=== PATIENT | female | born 1980 | race Caucasian/White ===

== ENCOUNTER 2019-09-11 10:29 | Outpatient (RCR) | payer BC, SELFPAY ==
--- NOTE | ~2019-09-11 | US_ITS ---
EXAMINATION: US OB BPP wo non-stress DATE: 09/08/2019 14:33 INDICATION: Advanced maternal age, third trimester TECHNIQUE: Real-time pelvic ultrasound was performed. The interpreting radiologist was not present fo r the study. COMPARISON: None. FINDINGS: There is a single living fetus in vertex presentation. The placenta is fundal/left. heart rate is 122 beats per minute (bpm). Biophysical profile performed by the technologist: breathing (30 sec sustained breathing in 30 minutes): 2 out of 2 movement (3 gross body movements in 30 minutes): 2 out of 2 tone (one episode of olsrnpv-tfiegioqt-xalhayy limb movement): 2 out of 2 Amniotic fluid pocket (2 cm): 2 out of 2 Total score: 8 out of 8 IMPRESSION: 1. Single living fetus in vertex presentation. 2. Biophysical profile 8 out of 8. Reviewed, dictated and finalized at location A. [facility]
[2019-09-11 11:12] VITALS: BP 107/72; PULSE 87
== END 2019-09-17 08:19 | disposition home or self-care (01) ==
LOC: ANHOBOP 10:29
PROVIDERS: Visit Provider Obstetrics & Gynecology
DX: O09.513 Supervision of elderly primigravida, third trimester (principal); O48.0 Post-term pregnancy; Z3A.40 40 weeks gestation of pregnancy
CPT/HCPCS: 59025; 76819

== ENCOUNTER 2019-09-15 06:15 | Inpatient (IN) | payer BC, SELFPAY ==
[2019-09-15] VITALS (15 sets, daily range): BP systolic 124–154; BP diastolic 75–90; PULSE 76–98; RESP 16; TEMP 36.6–37.3; O2SAT 99; BMI 24.0
[2019-09-15 06:59] LABS: Basophils Absolute Auto 0.1 K/mm3 (0.0-0.1); Basophils Percent Auto 0.6 % (0.2-1.2); Eosinophils Absolute Auto 0.1 K/mm3 (0-0.3); Eosinophils Percent Auto 0.8 % (0-4.4); Hematocrit 34.9 % (37.0-47.0); Hemoglobin 11.4 g/dL (12.0-15.0); Immature Granulocyte Absolute 0.05 K/mm3 (0.00-0.031); Immature Granulocyte Percent A 0.6 % (0-0.5); Lymphocytes Absolute Auto 1.07 K/mm3 (0.9-3.2); Lymphocytes Percent Auto 12.3 % (18.3-44.2); Mean Corpuscular HGB Conc 32.7 g/dl (32-36); Mean Corpuscular Hemoglobin 29.3 pg (26-34); Mean Corpuscular Volume 89.7 fl (80-100); Mean Platelet Volume 9.4 fl (7.4-10.4); Monocytes Absolute Auto 0.6 K/mm3 (0.1-0.6); Monocytes Percent Auto 6.6 % (2.6-8.5); Neutrophils Absolute Auto 6.9 K/mm3 (1.3-6.7); Neutrophils Percent Auto 79.1 % (45.5-73.1); Platelet Count Result 135 k/mm3 (150-375); Red Blood Count 3.89 M/mm3 (4.2-5.4); Red Cell Distribution Width 13.8 % (11.5-14.5); White Blood Count 8.7 K/mm3 (4.5-10.0)
[2019-09-15] MEDS: LACTATED RINGERS 1,000 ML 125 ML IV CONT (07:01)
--- NOTE | 2019-09-15 07:33 | LDADM ---
This patient, Emi Carter, was admitted to Labor/Delivery/Recovery 106 on 09/15/19 at 06:15. Plans for labor, pain management and were discussed with patient. Patient/family oriented to hospital policies and general routines including ID bracelet, bed and alarms, visiting hours, pain management, procedures, bathroom and other care routines, personal items, smoking policy, room service/diet and guest tray routines, infant security routines, and visiting hours. Patient/Family are encouraged to report perceived risks to care and to ask questions if they do not understand what they are told or what they should do. See OBIX for further documentation.
--- NOTE | 2019-09-15 09:54 | P.PCNOB_ITS ---
OB - Delivery Note Procedure Delivery date: 09/15/19 Route of delivery: Laceration description: Perineal - 1st Degree Delivery repair: chromic Specimen: No Estimated blood loss (mL): 200 Anesthesia type: Local Disposition: floor Narrative: Patient prepped and draped in usual sterile manner for this procedure. Maternal expulsive efforts readily delivered vertex with the rest of the baby delivered without difficulty. Placenta delivered spontaneously. Cervix survive vagina and vulva were inspected. No lacerations or tears. Other than a midline vaginal wall laceration which was readily approximated using 2 0 chromic running interlocking manner after injecting with 1% lidocaine. At this point the procedure was considered terminated, the uterus was well contracted and there was minimal bleeding. [place] Baby Weeks of gestation at delivery: 40 Infant gender: Male Weight (pounds): 8 Weight (ounces): 4 presentation: vertex Placenta delivery description: Spontaneous cord vessel description: 3 Vessels score one minute: 8 score five minutes: 9
--- NOTE | 2019-09-15 09:54 | WPDHPUPDATE1 ---
History and Physical Update Update Date/Time: 09/15/19 09:54 History and Physical has been reviewed, including an updated exam of the patient. There are NO changes in the patient's condition. Risks, benefits, and alternatives have been discussed and questions answered. Patient agrees to proceed with procedure.
--- NOTE | 2019-09-15 09:54 | WPDOBADMIT ---
Obstetrics - Admit Note Admission Note: record reviewed. No pertinent additions to the history and/or any subsequent changes in the physical findings that are not consistent with the expected course of the were found. Additions to the history and/or subsequent changes in the physical findings follow. None.
[2019-09-15] MEDS: IBUPROFEN 600 MG TABLET PO ×3 (10:34→23:02)
[2019-09-15] MEDS: WITCH HAZEL 40 PADS 1 PAD TOPICAL (10:34)
[2019-09-15] MEDS: BENZOCAINE 20% AER SPR (*SP) 56 GM CAN 1 SPRAY TOPICAL (10:34)
[2019-09-16] MEDS: IBUPROFEN 600 MG TABLET PO ×3 (05:34→22:15)
[2019-09-16 06:05] LABS: Hematocrit 30.2 % (37.0-47.0)
[2019-09-16] MEDS: BENZOCAINE 20% AER SPR (*SP) 56 GM CAN 1 SPRAY TOPICAL (07:15)
[2019-09-16] MEDS: WITCH HAZEL 40 PADS 1 PAD TOPICAL (07:15)
[2019-09-16] MEDS: MULTIVIT/MIN/PREN/FOL AC/IRON TABLET 1 TAB PO (07:15)
[2019-09-16] MEDS: DOCUSATE SODIUM 100 MG CAPSULE PO ×2 (07:15→15:19)
[2019-09-16] MEDS: DIBUCAINE 1% OINTMENT 30 GM TUBE 1 APPLIC TOPICAL (07:16)
[2019-09-16 07:30] VITALS: BP 121/82; PULSE 73; RESP 16; TEMP 37.1; O2SAT 98
[2019-09-16 10:54] LABS: Rapid Plasma Reagin Non-Reactive (NonReactive)
--- NOTE | 2019-09-16 13:13 | PM.OBDSVD ---
OB - DS: Summary OB Procedures : None OB Procedures Intrapartum: Spontaneous Vag Delivery OB Procedures: : None Time Spent with Patient Time attestation: Total time spent providing and/or coordinating discharge services: DS: Data Data Completed and Pending Labs on day of discharge: Labs from last 24 hours 09/16/19 09/15/19 04:44 06:52 Hgb 10.0 L Hct 30.2 L RPR Non-reactive Discharge Plan Discharge Discharging Clinician: Braulio Gant Patient Disposition: Home, Self-Care Activity: as tolerated Diet: as tolerated Patient Instructions: Antibiotic Form Stand Alone Forms: General Discharge Information Follow-up/Referrals: Braulio Gant MD [Physician] - 3 Weeks Discharge Medications: New ibuprofen 600 mg Tablet 600 mg PO Q6H PRN (Reason: Cramping) Qty: 30 RF: 0 Continued ferrous sulfate 324 mg (65 mg iron) Tablet,Delayed Release (Dr/Ec) 324 mg PO DAILY RF: 0 PNV cmb#95-ferrous fumarate-FA [] 28 mg iron- 800 mcg Tablet 1 tablet PO DAILY RF: 0 Date of admission: 09/15/19 06:15 Primary Care Provider: UNKNOWN,DOCTOR Admitting Provider: Braulio Gant Attending physician on admission: Braulio Gant
--- NOTE | 2019-09-16 14:20 | PC.NURSE ---
1420 Breast feeding note; mother called nurse to room to assist and evaluate breast feeding as nurse had requested her do to. Report was that infant was probably latching shallow for feedings. Nurse instructed mother how to assess that baby was latching with deep latch, and mother agreed that probably baby had been latching shallow. Mother was shown cross cradle position alignment, with use of nose to nipple latch-on technique, holding breast in ?U? hold and asymmetrical latch on discussing rational for each. Baby awake, eager; several attempts required; cross-cradle position used. Baby latched after several attempts, apparent deep latch; maintained latch and demonstrated vigorous, rhythmic sucking. Mother stated she could feel the difference with a deeper latch. Reviewed frequency and duration of feedings, q2-3 hours and on demand, and nipple care. Mother reported she was able to get infant latched to second side, using cross-cradle position, and latch was good. Mother encouraged to call for nurse assistance at any feeding, especially if having difficulty getting infant latched correctly. She agreed and voiced understanding of all information shared. would draw back during feeding to shallow latch, demonstrated how to adjust latch more deeply while feeding. Suggested to give gentle resistance and not allow to draw back during feeding to assist maintaining deep latch.
--- NOTE | 2019-09-16 17:18 | PC.NURSE ---
Patient viewed the discharge video Mother & Baby Care, The First Two Weeks . Patient was given the opportunity and encouraged to ask questions. Patient verbalized understanding of information shared and has been given the mother/baby guide for home reference.
[2019-09-16 18:53] VITALS: BP 127/78; PULSE 68; RESP 18; TEMP 36.7
[2019-09-17] MEDS: BENZOCAINE 20% AER SPR (*SP) 56 GM CAN 1 SPRAY TOPICAL (07:35)
[2019-09-17] MEDS: WITCH HAZEL 40 PADS 1 PAD TOPICAL (07:35)
[2019-09-17] MEDS: IBUPROFEN 600 MG TABLET PO (07:36)
[2019-09-17] MEDS: LANOLIN (LANSINOH) 7.5 GM CREAM 1 APPLIC TOPICAL (07:36)
[2019-09-17] MEDS: DIBUCAINE 1% OINTMENT 30 GM TUBE 1 APPLIC TOPICAL (07:36)
[2019-09-17] MEDS: MULTIVIT/MIN/PREN/FOL AC/IRON TABLET 1 TAB PO (07:37)
[2019-09-17] MEDS: DOCUSATE SODIUM 100 MG CAPSULE PO (07:37)
[2019-09-17 08:00] VITALS: BP 139/84; PULSE 73; RESP 18; TEMP 36.9; O2SAT 100
--- NOTE | 2019-09-17 10:00 | PC.NURSE ---
Observed mother is able to independently latch with appropriate positioning/alignment. She denies any nipple discomfort, is feeding as required and waking infant to feed if needed. has had 9 effective feedings in the past 24 hours, and is currently meeting outcomes for weight, output, jaundice and feeding frequencies. Mother states she feels confident to continue effective at home. Reviewed transition to breast milk, signs of adequate intake, and engorgement/relief. Instructed to call ICP if intake/output less than required. Reviewed regular medications mother is taking. Information provided per Anastasiia. Reviewed community resources on the [facility] website and in the Mom/Baby guide. Information on outpatient services provided. Mother has no further questions at this time.
--- NOTE | 2019-09-17 10:09 | PC.NURSE ---
Self care and infant care discharge instructions given to pt. including follow up visit date and time. Pt. verbalized understanding. No questions or concerns verbalized. Spouse at side.
--- NOTE | 2019-09-18 07:10 | PM.OBDSVD ---
OB - DS: Summary OB Procedures : None OB Procedures Intrapartum: Spontaneous Vag Delivery OB Procedures: : None Time Spent with Patient Time attestation: Total time spent providing and/or coordinating discharge services: Discharge Plan Discharge Discharging Clinician: Braulio Gant Patient Disposition: Home, Self-Care Activity: as tolerated Diet: as tolerated Discharge Instructions: Education: Mom and Baby Guide Given to: Mother Follow-Up: Call your delivering provider's office for an appointment to be seen in: 3 Weeks Mom and baby should come to the [facility] for the follow-up appointment. Appointment Date/Time: September 18, 2019 at 9:00 am What to expect at your follow-up visit: Blood Pressure Check Physical Assessment Call [phone] if you are unable to keep your appointment time. BREAST CARE: 1. Wear a snug supportive bra. 2. For engorgement discomfort: Breast Feeding: A. Apply warm moist washcloths B. Express milk as needed to relieve engorgement C. Wear loose clothing Bottle Feeding: A. May apply ice packs 3. For sore nipples: A. Identify correct latch-on B. Apply warm moist washcloths before and after nursing C. Air dry nipples after nursing D. May apply Lansinoh cream to nipples EPISIOTOMY/PERINEAL CARE: 1. Until bleeding stops, use your venkatesh bottle after urinating 2. Change your pad frequently throughout the day 3. You may take sitz baths several times a day (fill your bathtub with warm water and soak for 20 minutes.) Do NOT bathe in the water 4. No tub baths until seen by your physician - You may shower ACTIVITY: 1. Rest as much as possible. 2. Do not exercise or lift anything heavier than your baby (such as laundry or other children.) 3. Avoid stairs or driving as much as possible. 4. Do not put anything into the vagina. No douching, tampons, or sexual activity until seen by physician. NOTIFY PHYSICIAN IF YOU HAVE ANY QUESTIONS OR IF ANY OF THE FOLLOWING SYMPTOMS OCCUR: 1. If your episiotomy becomes red, swollen, or more painful than what you have experienced in the hospital. 2. If your vaginal bleeding becomes foul smelling. 3. If your vaginal bleeding becomes more heavy than a period or if your bleeding changes from pink to bright red. However, you may pass an occasional walnut-sized clot once or twice for the first week . 4. If you experience a sharp, shooting pain in you calves. 5. If you discover a hard, reddened area on your breast or if you experience flu-like symptoms. DIET: 1. Eat regular, well-balanced meals. 2. Drink plenty of fluids daily. If , drink to thirst. Patient Instructions: Antibiotic Form Stand Alone Forms: General Discharge Information Follow-up/Referrals: Braulio Gant MD [Physician] - 3 Weeks Discharge Medications: New ibuprofen 600 mg Tablet 600 mg PO Q6H PRN (Reason: Cramping) Qty: 30 RF: 0 Continued ferrous sulfate 324 mg (65 mg iron) Tablet,Delayed Release (Dr/Ec) 324 mg PO DAILY RF: 0 PNV cmb#95-ferrous fumarate-FA [] 28 mg iron- 800 mcg Tablet 1 tablet PO DAILY RF: 0 Date of admission: 09/15/19 06:15 Primary Care Provider: UNKNOWN,DOCTOR Admitting Provider: Braulio Gant Discharge Date/Time: 09/17/19 13:47 Attending physician on admission: Braulio Gant
[2019-09-18 09:50] VITALS: BP 128/88; PULSE 80; RESP 18; TEMP 36.6
== END 2019-09-17 13:47 | disposition home or self-care (01) | DRG 807 ==
LOC: ANHLDR 10:58 → ANHOB2 12:15
PROVIDERS: Admitting Provider Obstetrics & Gynecology; Visit Provider Obstetrics & Gynecology
DX: O62.3 Precipitate labor (principal); Z37.0 Single live birth; Z3A.41 41 weeks gestation of pregnancy; O70.0 First degree perineal laceration during delivery
CPT/HCPCS: 36415; 85014; 85018; 85025; 86592; 86850; 86900; 86901; A9270; J2590; J7120

== ENCOUNTER 2024-04-23 11:49 | Outpatient (CLI) | payer BC, SELFPAY ==
--- NOTE | ~2024-04-23 | MM_ITS ---
EXAMINATION: MM screening rico BI w alex HISTORY: Screening TECHNIQUE: Craniocaudal and mediolateral oblique 3-D tomosynthesis images were obtained and synthetic 2-D images were generated. CAD analysis was submitted and interpreted. COMPARISON: No prior mammogram is available for comparison at this institution. BREAST PARENCHYMAL COMPOSITION: Dense: The breasts are extremely dense, which lowers the sensitivity of mammography. FINDINGS: There is no evidence of suspicious mass, calcification, or architectural distortion to sugg est malignancy in either breast. There has been no suspicious interval change. IMPRESSION: 1. No mammographic evidence of malignancy. 2. Recommend routine screening mammography in one year. BI-RADS Category 1: Negative Reviewed, dictated and finalized at location B.
== END 2024-04-23 11:50 | disposition home or self-care (01) ==
PROVIDERS: PCP Family Medicine; Visit Provider Obstetrics & Gynecology
DX: Z12.31 Encounter for screening mammogram for malignant neoplasm of breast (principal)
CPT/HCPCS: 77063; 77067